=== PATIENT | male | born 1995 | race Caucasian/White ===

== ENCOUNTER 2025-04-24 21:01 | Emergency (ER) | payer MEDICAID, SELFPAY ==
[2025-04-24 21:04] VITALS: BP 130/85; PULSE 107; PULSE 108; RESP 18; RESP 20; TEMP 36.9; O2SAT 100
--- NOTE | 2025-04-24 21:13 | PD.EDPSYCH ---
ED Psych RME/HPI General Chief Complaint: Psychiatric Symptoms Stated Complaint: HALLUCINATING Time Seen by Provider: 04/24/25 21:20 Arrival date/time: 04/24/25 21:01 RME / HPI RME / HPI Narrative: See MDM for Dr. Bowser's HPI documentation. Review of Systems Review of Systems Systems Reviewed: All systems reviewed, normal except as documented Past Medical History Past Medical History CARDIAC: Negative Congestive Heart Failure RESPIRATORY: Negative Chronic Obstructive Pulmonary Disease (COPD) GENITOURINARY: Negative Renal Disease ENDOCRINE: Negative Diabetes Mellitus Type 1 or Diabetes Mellitus Type 2 Surgical History SURGICAL: Positive Abdominal Surgery and of Back Surgery Social History SMOKING STATUS: Former smoker ED Exam Narrative Physical exam: See MDM for Dr. Bowser's physical exam documentation. Course Quality Measures none Orders Category Date Time Status Straight [In and Out Catheter] X1 Care 04/24/25 21:20 Completed Acetaminophen Stat Lab 04/24/25 22:14 Completed Alcohol, Blood Medical Stat Lab 04/24/25 22:14 Completed Bilirubin,Direct Stat Lab 04/24/25 22:14 Completed CBC Stat Lab 04/24/25 22:14 Completed CK [Creatine Kinase] Stat Lab 04/24/25 22:14 Completed CMP [Comprehensive Metabolic Panel] Stat Lab 04/24/25 22:14 Completed Drug Screen,Urine Stat Lab 04/24/25 21:30 Completed Magnesium Stat Lab 04/24/25 22:14 Completed Salicylate Stat Lab 04/24/25 22:14 Completed TSH [Thyroid Stimulating Hormone] Stat Lab 04/24/25 22:14 Completed UA, C/S IF [Urinalysis, C/S if Indicated] Stat Lab 04/24/25 21:30 Completed Referral Nurse Rn Bsn NOW 04/24/25 23:24 Active Vital Signs Vital signs: Vital Signs Temperature 98.4 F 04/24/25 21:04 Pulse Rate 107 H 04/24/25 21:04 Respiratory Rate 20 04/24/25 21:04 Blood Pressure 130/85 H 04/24/25 21:04 Pulse Oximetry (%) 100 04/24/25 21:04 Oxygen Delivery Method Room Air 04/24/25 21:04 Psych MDM Narrative [facility] Narrative:: This section includes all my notes and documentations, including HPI, PE, and ED course. Adalid Bowser MD HPI: 29-year-old male with paraplegia here for psychiatric evaluation. Based on patient's answers, very difficult deciphering accurate history. He talked about [place] and [place]. He was stopped by police. EMS called for transportation here. He reports no psychiatric diagnoses in the past. But, he talked about hearing voices in childhood. When asked about suicidal thoughts, he talked about wanting other people to hurt him when using his phone. Sounds like he has no thoughts of hurting other people. Equivocal auditory and visual hallucinations. ROS: All negative except as documented in HPI. Physical Exam: General: Alert and oriented. Flat affect noted. Eyes: Conjunctivae and lids clear. ENT: No nasal congestion. Neck: Supple. Heart: RRR. Lungs: No respiratory distress. Good air movement. No rhonchi, wheezing, rales. Abdomen: Soft and nontender. Skin: Warm and dry. Neuro: Alert and oriented X 3. Cranial nerves II through grossly normal. No peripheral motor deficits. I reviewed EMS notes. I reviewed all diagnostic test results. Blood tests and urine tests unremarkable. At this point, diagnoses include: Possible psychosis Entered order for evaluation by our ED child adolescent care. Patient is medically cleared for psychiatric care. At 6 AM on 04/25/25, the care of the patient was transferred Dr. Strange. Adalid Bowser MD Patient data External records reviewed:: [facility] previous records (Per chart review, patient has no previous ED visits or admissions to this facility.) and EMS form Clinical information provided by:: patient Social determinants that could affect healthcare access:: mental health Patient has the following chronic illnesses:: none How is presenting disease/condition affected by chronic disease/condition?: no chronic disease Evaluation data The following diagnostics were reviewed and interpreted by me:: lab results Lab and/or radiology exams considered but not ordered:: none Interpretation Summary: Blood tests and urine tests unremarkable. Medications / Prescriptions Medications or Prescriptions considered but not ordered:: none Medication administrations:: None Consultations Consultation(s) initiated? (list below): No Diagnosis Psych Differential Diagnosis: acute psychosis, chronic schizophrenia, suicidal ideation, bipolar disorder, depression, drug-induced psychotic disorder and acute anxiety Most likely diagnosis given after review of the tests above:: Possible psychosis Admission Indicated Admission indicated?: not indicated Explain why admission is indicated or not indicated:: No psychiatric service here. Admission Request Was there a request for admission?: No Disposition Plan Disposition Plan: other (specify) (At 6 AM on 04/25/25, the care of the patient was transferred Dr. Strange.) Discharge Plan Prescriptions/Referrals Referrals: No Primary/Family,Physician [Primary Care Provider] - In 1 week Problem List Clinical Impression: Psychosis Patient/Caregiver Discharge Instructions Print Language: Kiswahili
[2025-04-24 21:45] LABS: Amorphous Crystals,Urine Present (Absent); Bacteria,Urine 2+; Bilirubin,Urine Negative (Negative); Blood,Urine Negative (Negative); Budding Yeast,Urine Present; Clarity,Urine Turbid (Clear/Hazy); Collection Type, Urine Clean Catch; Color,Urine Yellow (Lt Yel-Yel); Culture Indicated,Urine Contaminated; Glucose, Urine Negative (Negative); Ketones,Urine Negative (Negative); Leukocyte Esterase,Urine Positive (Negative); Nitrite,Urine Positive (Negative); PH,Urine 7.0 (5.0-7.0); Protein,Urine 1+ (Neg - Trace); RBC,Urine 9 /hpf (0-3); Specific Gravity,Urine 1.023 (1.001-1.035); Squamous Epithelial Cell,Urine 14 /hpf (0-5); Urobilinogen,Urine Negative mg/dL (0.0-1.0); WBC,Urine 64 /hpf (0-5)
[2025-04-24 21:51] LABS: Amphetamine/Methamp Scrn,U Negative (Negative); Barbiturate Screen,Urine Negative (Negative); Benzodiazepines Screen,Urine Negative (Negative); Benzoylecgonine Screen, Ur Negative (Negative); Fentanyl Screen,Urine Negative (Negative); Opiate Screen,Urine Negative (Negative); THC Screen,Urine Negative (Negative)
[2025-04-24 22:34] LABS: Basophils # (Auto) 0.0 Thou/mm3 (0.0-0.2); Basophils % (Auto) 0 % (0-2.5); Eosinophils # (Auto) 0.0 Thou/mm3 (0.0-0.5); Eosinophils % (Auto) 0 % (0-10); Hematocrit 41.3 % (41.0-53.0); Hemoglobin 14.3 g/dL (13.5-16.0); Immature Granulocytes Auto 0.05 Thou/mm3 (0.00-0.00); Lymphocytes # (Auto) 1.4 Thou/mm3 (1.0-4.8); Lymphocytes % (Auto) 9 % (10-50); Mean Corpuscular HGB Conc 34.6 g/dl (31.0-37.0); Mean Corpuscular Hemoglobin 30.6 pg (25.0-35.0); Mean Corpuscular Volume 88 fL (80-100); Monocytes # (Auto) 1.0 Thou/mm3 (0.0-0.8); Monocytes % (Auto) 7 % (0-12); Neutrophils # (Auto) 12.5 Thou/mm3 (1.8-7.7); Neutrophils % (Auto) 84 % (37-80); Nucleated Red Blood Cell # 0.00 Thou/mm3 (0.00-0.00); Nucleated Red Blood Cell % 0 /100 WBC (0); Platelet Count 338 Thou/mm3 (140-440); RDW Standard Deviation 42.5 fL (35.1-43.9); Red Blood Count 4.67 Miln/mm3 (4.50-5.90); White Blood Count 14.9 Thou/mm3 (3.8-10.6)
[2025-04-24 23:00] LABS: Acetaminophen < 2.0 mcg/mL (10.0-20.0); Alanine Aminotransferase 9 U/L (10-49); Albumin, Serum 4.6 gm/dL (3.5-5.0); Albumin/Globulin Ratio 1.5 (1.2-2.2); Alcohol, Blood Medical < 3.0 mg/dL (0-10.0); Alkaline Phosphatase 74 U/L (46-116); Anion Gap 10 (7-16); Aspartate Amino Transferase 14 U/L (0-34); BUN/Creatinine Ratio 17 Ratio (12-20); Bilirubin,Direct 0.1 mg/dL (0.0-0.3); Bilirubin,Total 0.5 mg/dL (0.3-1.2); Blood Urea Nitrogen 10 mg/dL (9-23); Calcium 9.5 mg/dL (8.3-10.6); Calcium (Corrected) 9.5 mg/dL (8.5-10.1); Carbon Dioxide 25.9 mMol/L (20.0-31.0); Chloride 106 mMol/L (98-107); Creatine Kinase 77 U/L (34-171); Creatinine (Component) 0.6 mg/dL (0.6-1.3); Globulin 3.0 gm/dL (2.3-3.5); Glucose 95 mg/dL (74-106); Magnesium 1.8 mg/dL (1.6-2.6); Osmolality,Calculated 282 (275-295); Potassium 4.0 mMol/L (3.4-5.1); Salicylate < 3.0 mg/dL; Sodium 142 mMol/L (136-145); Thyroid Stimulating Hormone 1.96 uIU/mL (0.55-4.78); Total Protein 7.6 gm/dL (5.7-8.2); eGFR > 60 See Note
[2025-04-25] VITALS (11 sets, daily range): BP systolic 93–126; BP diastolic 57–72; PULSE 95–126; RESP 12–20; TEMP 36.8–38.7; O2SAT 98–100; BMI 19.9
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
--- NOTE | 2025-04-25 08:45 | PC.SS ---
Jose Brunson is 29-Year-old male with paraplegia, was brought in via ambulance. Patient contacted [place] Police to obtain assistance reported needing help. Per Dr. Bowser, patient?s answers were very difficult deciphering accurate history. Patient was not placed on a hold. Cassidy [place] and Dorothy AGUILERA met face- to- face with patient at bedside. Patient has active visual hallucinations and confusion and Significant function decline. Patient is not medically cleared at this time due to active UTI. Per collateral from patient?s sister, Ally, she reports patient is typically active independent and capable of managing his needs, however has not been the same since developing UTI. Patient has no history of mental health, although he was diagnosed with oppositional defiant disorder diagnosis in childhood. Sister reports patient had a recent hospitalization due to severe UTI. Recent psychiatric instability includes two prior 5150 holds within the past three month, however was never placed on a hold and never seen a psychiatrist or therapist after discharging from the hospital. Patient?s sister, Ally reports during admission and being observed by a one on one sitter, the patient attempted suicide by hanging himself. ?volunteer services supervisor will continue to monitor patient, once medically cleared, SS will evaluate and determine if patient will be placed on a 5150 hold.
[2025-04-25 09:06] LABS: Lactate (Lactic Acid) 1.8 mMol/L (0.4-2.0)
[2025-04-25 09:41] LABS: Procalcitonin 0.56 ng/ml (0.0-0.49)
[2025-04-25] MEDS: ACETAMINOPHEN 325 MG TABLET 650 MG PO (11:06)
[2025-04-25] MEDS: SODIUM CHLORIDE 0.9% 1000 ML 1,000 ML 999 ML IV ×2 (11:10→21:03)
[2025-04-25] MEDS: cefTRIAXone/D5w 1gm IV premix 1 GM/50 ML BAG IV ×2 (11:11→21:03)
--- NOTE | 2025-04-25 15:32 | PC.CC ---
Patient is a 29 year old paraplegic male presenting with auditory hallucinations, paranoia, and confusion and disorganized behaviors. Patient is medically clear but continue to show significant psychiatric impairment. Per sister, this is not patient?s baseline, and she reports a continued decline in his physical and mental health. Patient is disheveled, unable to care for hygiene and unable to articular or follow a plan for safety, or ongoing medical /psychiatric care. Due to impairment judgment, paranoia, function decline and inability to meet basic needs, patient meets criteria for Grave Disability.
--- NOTE | 2025-04-25 17:00 | PC.SS ---
SS follow up note; SS sent out packet to all LPS facilities.
--- NOTE | 2025-04-25 18:13 | PD.EDADDENDU ---
Emergency Room Addendum Addendum Narrative: I took over the care from previous shift physician (Dr. Strange) at _6PM_ on _04/25/25_. See previous notes for complete H & P and ED course. I reviewed all diagnostic test results. Diagnoses include: Gravely disabled (5150 hold) UTI Inpatient psychiatric unit placement pending. At 6 AM on 04/26/2012, the care of the patient was transferred to Dr. Patterson. Adalid Bowser MD
[2025-04-25] MEDS: ACETAMINOPHEN 500 MG TABLET 1000 MG PO (20:54)
[2025-04-25] MEDS: KETOROLAC INJ 30 MG/ML VIAL IVP (21:05)
[2025-04-26] VITALS (11 sets, daily range): BP systolic 93–123; BP diastolic 60–71; PULSE 70–95; RESP 16–19; TEMP 36.5–37; O2SAT 95–100
--- NOTE | 2025-04-26 07:35 | PC.NURSE ---
Pt. here from home to room 16, pt.'s Mother and ERP CONSULTANT are bedside, Mother states pt. had sepsis back in August and Mother states with the sepsis pt. had delirium. Mother states pt. lives with her only because he is trying to buy a house. 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 Mother states pt. still rides motorcycles and snowboards when he wants to. Mother states if he gets any infection he talks and it doesn't make sense. Pt. has a wound on the right buttocks and inside left foot, Mother states she has been treating his wounds, Mother states it is hard because pt. only wants to lay on his right side. Pt. asks for warm blankets, given, warm blanket given to Mother as well. Mother states she brought pt.'s caths from home because he doesn't like the ones we have here.
--- NOTE | 2025-04-26 08:40 | PD.EDADDENDU ---
Emergency Room Addendum Addendum Narrative: 0600: Care assumed from Dr. Bowser, the previous shift emergency physician. Past medical, surgical, social and family history reviewed. Vitals and home medications reviewed. I will assume the care of the patient at this time, pending LPS facility placement. Please refer to the emergency department record for history and examination from initial visit.?The following addendum documentation note is intended to reflect any pending information, findings, or radiology results not included in the patient?s initial chart. During my watch and through ED course, the patient has remained vitally stable. Remains afebrile. 1800p: Care signed out to Dr. Bowser, pending LPS facility placement.
--- NOTE | 2025-04-26 09:55 | PC.NURSE ---
Estrella from [facility] called for report, report given and answered all questions, Estrella states she will call back after she presents the case to her Doctor.
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
--- NOTE | 2025-04-26 11:58 | PC.NURSE ---
Houston from [facility] called for report on pt., Houston states they will not accept pt. because he self caths and they do not take any catheter patients at their facility.
--- NOTE | 2025-04-26 12:05 | PC.NURSE ---
Shower chair obtained from [facility] for pt. to use.
--- NOTE | 2025-04-26 12:22 | PC.NURSE ---
Pt. back to room 16, from shower, pt. states he feels better after taking a shower. MILITARY ADMINISTRATIVE TECHNICIAN with pt.
--- NOTE | 2025-04-26 14:23 | PC.NURSE ---
Emilio with [facility] called and wanted report, Emilio states they can not accept pt. because pt. self caths himself.
--- NOTE | 2025-04-26 14:28 | PC.NURSE ---
Belinda with [facility] called and wanted report, Belinda states they can not accept pt. because pt. self caths himself.
--- NOTE | 2025-04-26 14:30 | PC.CC ---
11:10 AM: COMMUNICATION EQUIPMENT MECHANIC met with patient and patient mother at beside. Patient appeared disheveled and was eating eating oatmeal and rice during the interaction.Patient's mother provided additional collateral information, stating that he patient is not as his baseline and that his behaviors have progressively worsened. Patient mother reported that, while at home patient had not been eating, sleeping or attending to his activities of daily living (ADL's). Patient's mother also noted a family history of depress on her side and a history of substance use leading to psychosis on the biological father's side. 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 According to patient mother prior medical providers have informed her that delusional episodes can last from weeks to years, particularly if the patient is not taking medication consistently. Patient mother expressed concerns that patient refuses daily medication further contributing to her worry about patient returning home. COMMUNICATION EQUIPMENT MECHANIC informed the patient's mother that placement options continue to be explored and that team will collaborate with her to identify a safe plan for the patient's return home. COMMUNICATION EQUIPMENT MECHANIC will continue monitoring the situation and will proceed with sending placement packets.
[2025-04-26] MEDS: cefTRIAXone/D5w 1gm IV premix 1 GM/50 ML BAG IV (19:17)
[2025-04-26 20:01] LABS: Collection Type, Urine Clean Catch
[2025-04-26 20:05] LABS: Bilirubin,Urine Negative (Negative); Blood,Urine Negative (Negative); Clarity,Urine Clear (Clear/Hazy); Color,Urine Yellow (Lt Yel-Yel); Glucose, Urine Negative (Negative); Ketones,Urine Negative (Negative); Leukocyte Esterase,Urine Positive (Negative); Nitrite,Urine Negative (Negative); PH,Urine 6.0 (5.0-7.0); Protein,Urine Trace (Neg - Trace); RBC,Urine 4 /hpf (0-3); Specific Gravity,Urine 1.032 (1.001-1.035); Squamous Epithelial Cell,Urine 2 /hpf (0-5); Urobilinogen,Urine Negative mg/dL (0.0-1.0); WBC,Urine 38 /hpf (0-5)
[2025-04-26 20:10] LABS: Culture Indicated,Urine Yes
[2025-04-27] VITALS (7 sets, daily range): BP systolic 90–116; BP diastolic 58–69; PULSE 69–89; RESP 14–18; TEMP 36.4–36.9; O2SAT 96–100
--- NOTE | 2025-04-27 00:13 | XR_ITS ---
EXAMINATION: AP chest single view TECHNIQUE: AP portable upright chest single view Date and time: April 27, 2025, 12:42 a.m. INDICATIONS: Chest pain fever today FINDINGS: Normal heart size No lobar pneumonia or pulmonary edema Thoracic levoscoliosis with orthopedic stabilization rods Prominent osteopenia IMPRESSION: No pneumonia or pulmonary edema
[2025-04-27] MEDS: RINGERS LACTATED 1000 ML 1,000 ML IV (00:28)
--- NOTE | 2025-04-27 00:55 | XR_ITS ---
Examination: CT chest with intravenous contrast CT abdomen with intravenous contrast CT pelvis with intravenous contrast 2-D coronal and sagittal reconstructions Time of exam: April 27, 2025, 1315 hours INDICATIONS: Fever shortness of breath chest pain abdominal pain, nonhealing sacral wounds with redness noticed beginning 2 days ago CTDI: vol (mGy) : 5.66 DLP: (mGycm): 461 Technique: Multiple axial images of the chest, abdomen and pelvis with intravenous contrast, 3.0 mm slice thickness. Images obtained post intravenous injection Isovue 370 60 cc. 2-D sagittal and coronal reconstructions. Low dose protocols were performed. One or more of the following dose reduction techniques were used; automated exposure control, adjustment of the mA and/or KV according to patient size, use of iterative reconstruction technique. Findings: No thoracic aortic aneurysm dilatation No pulmonary artery emboli on this done CTA study No mediastinal lymphadenopathy No pneumonia or pulmonary edema No visualized liver or splenic lesion Contracted gallbladder, cholelithiasis No pancreatic mass Bilateral renal calculi, the largest left kidney 19 mm No hydronephrosis or ureteral calculi IVC filter No bowel obstruction Large amounts of stool in the rectum with thickening of the rectal wall No prostatomegaly Urinary bladder wall shows thickening IVC filter Prominent thoracolumbar dextroscoliosis Partial congenital left hip dysplasia Extensive thoracic stabilization procedure with transpedicular fixation screws Cellulitis pattern in the soft tissue posterior to the sacrum and coccyx without abscess and no ashlyn cortical bone destruction Cellulitis in the buttock region bilaterally,, muscle in the right buttock region is thickened IMPRESSION: Cholelithiasis, contracted gallbladder, recommend about a biliary sonography follow-up Bilateral renal calculi, no hydronephrosis or ureteral calculi Large amounts of stool in the rectum with rectal wall thickening, or proctitis pattern Urinary bladder wall thickening, cystitis pattern Cellulitis pattern in the soft tissue posterior to the sacrum and coccyx without abscess or ashlyn cortical bone destruction Cellulitis in the buttock region bilaterally,, muscle in the buttock region on the right is thickened although no obvious abscess, recommend ultrasound soft tissue right buttock follow-up
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
[2025-04-27 01:56] LABS: Lactate (Lactic Acid) 1.2 mMol/L (0.4-2.0)
[2025-04-27 02:02] LABS: Sed Rate (ESR) 4 mm/hr (0-15)
[2025-04-27 02:04] LABS: Basophils # (Auto) 0.0 Thou/mm3 (0.0-0.2); Eosinophils # (Auto) 0.1 Thou/mm3 (0.0-0.5); Eosinophils % (Auto) 2 % (0-10); Lymphocytes % (Auto) 34 % (10-50); Monocytes # (Auto) 0.7 Thou/mm3 (0.0-0.8); Nucleated Red Blood Cell # 0.00 Thou/mm3 (0.00-0.00); Nucleated Red Blood Cell % 0 /100 WBC (0)
[2025-04-27 02:06] LABS: Basophils % (Auto) 1 % (0-2.5); Hematocrit 37.2 % (41.0-53.0); Hemoglobin 12.3 g/dL (13.5-16.0); Immature Granulocytes Auto 0.03 Thou/mm3 (0.00-0.00); Lymphocytes # (Auto) 1.9 Thou/mm3 (1.0-4.8); Mean Corpuscular HGB Conc 33.1 g/dl (31.0-37.0); Mean Corpuscular Hemoglobin 29.6 pg (25.0-35.0); Mean Corpuscular Volume 90 fL (80-100); Monocytes % (Auto) 12 % (0-12); Neutrophils # (Auto) 2.8 Thou/mm3 (1.8-7.7); Neutrophils % (Auto) 50 % (37-80); Platelet Count 199 Thou/mm3 (140-440); RDW Standard Deviation 42.3 fL (35.1-43.9); Red Blood Count 4.15 Miln/mm3 (4.50-5.90); White Blood Count 5.6 Thou/mm3 (3.8-10.6)
--- NOTE | 2025-04-27 02:56 | PRELIM_ITS ---
CT scan of the chest, abdomen and pelvis with intravenous contrast (axial sections with sagittal and coronal reformats) April 27, 2025 0115 hours Clinical History: Fever, shortness of breath,. Sacral wounds with erythema/calor Comparison: None available at the time of this report. Findings: The lungs are clear. There is no pleural effusion or pneumothorax. The aorta is unremarkable without evidence of dissection or aneurysm. No evidence of mediastinal mass or lymphadenopathy. There is no pericardial effusion. The liver, spleen, pancreas, and adrenals are unremarkable. The gallbladder is contracted. Gallbladder wall thickening and gallstones without CT evidence of acute cholecystitis. Left renal calcification. Nonobstructing right kidney stones. No hydronephrosis. IVC filter noted in place. Impacted stool seen in the rectum associated with fecal loading. No evidence of bowel obstruction. No evidence of appendicitis. The urinary bladder is nondistended, limited evaluation, questionable thickening of the urinary bladder wall. Trace of air within the urinary bladder There is no free fluid or air. Degenerative changes of the imaged portions of the spine. No acute fractures. Right convex thoracolumbar scoliosis. Spinal hardware noted. Subcutaneous fat edema at the level of the sacrum. No collections. Right gluteal skin thickening. Impression: 1. Probable cystitis. Please, correlate clinically. 2. Subcutaneous fat edema at the level of the sacrum. 3. No collections. 4. Impacted stool seen in the rectum associated with fecal loading. Consider disimpaction. 5. Nonobstructive right nephrolithiasis. 6. Gallbladder wall thickening and gallstones without CT evidence of acute cholecystitis. If acute cholecystitis is clinically suspected consider correlation with right upper quadrant ultrasound. 7. Right gluteal skin thickening. Correlate with direct visualization. Report Electronically Signed By: Lamont Ruiz 04/27/2025 2:54:53 AM [EST]
[2025-04-27 03:12] LABS: Alanine Aminotransferase 8 U/L (10-49); Albumin, Serum 3.8 gm/dL (3.5-5.0); Albumin/Globulin Ratio 1.5 (1.2-2.2); Alkaline Phosphatase 60 U/L (46-116); Anion Gap 11 (7-16); Aspartate Amino Transferase 24 U/L (0-34); BUN/Creatinine Ratio 10 Ratio (12-20); Bilirubin,Total 0.2 mg/dL (0.3-1.2); Blood Urea Nitrogen 7 mg/dL (9-23); C-Reactive Protein 4.4 mg/dL (0.0-0.9); Calcium 8.6 mg/dL (8.3-10.6); Calcium (Corrected) 8.8 mg/dL (8.5-10.1); Carbon Dioxide 22.4 mMol/L (20.0-31.0); Chloride 106 mMol/L (98-107); Creatinine (Component) 0.7 mg/dL (0.6-1.3); Estimated Creatinine Clearance 145.5 mL/min (>60); Globulin 2.6 gm/dL (2.3-3.5); Glucose 104 mg/dL (74-106); Osmolality,Calculated 275 (275-295); Potassium 4.4 mMol/L (3.4-5.1); Sodium 139 mMol/L (136-145); Total Protein 6.4 gm/dL (5.7-8.2); eGFR > 60 See Note
--- NOTE | 2025-04-27 03:15 | XR_ITS ---
Examination: Abdomen sonogram, Limited Date and time of exam: April 27, 2025, 0421 hours INDICATIONS: Abdominal pain today Technique: Real-time stern scale transabdominal sonographic images of the upper abdomen obtained. Findings: Cholelithiasis The technologist measures the gallbladder wall 0.2 cm there appears to be fluid within and adjacent to the gallbladder wall Common bile duct 0.2 cm Pancreatic head 1.7 cm Liver 15.8 cm Normal hepatopetal portal venous flow Patent IVC IMPRESSION: Cholelithiasis Suspicious for fluid in the gallbladder wall, recommend HIDA scan or MRCP follow-up
[2025-04-27 03:32] LABS: Procalcitonin 0.20 ng/ml (0.0-0.49)
--- NOTE | 2025-04-27 05:35 | PRELIM_ITS ---
Gallbladder ultrasound. April 27, 2025 0421 hours Clinical history: RUQ tenderness. Comparison: Correlated with the prior CT study dated April 27, 2025 Findings: The visualized liver is normal in echogenicity without mass or ductal dilatation. Gallbladder is contracted. A 6.6 mm calculus is noted within the gallbladder, without evidence of gallbladder wall thickening or pericholecystic fluid. The common duct is normal in caliber at 2 mm. No free fluid is demons trated on the submitted images. Impression: Cholelithiasis without evidence of acute cholecystitis. Report Electronically Signed By: Mp March 04/27/2025 5:34:32 AM [EST]
--- NOTE | 2025-04-27 07:11 | PC.CC ---
Addendum entered by Hedy oLpez 04/27/25 11:29: 1127 Nessa reports he was denied due to medical reasons and they cannot accommodate. Addendum entered by Hedy Lopez 04/27/25 10:34: 1030 Mine with [facility] reports they cannot accommodate the patient do to medical. 1025 Kim with [facility] reports they have no open beds. 1022 Rosalba with [facility] reports they have a few open beds and will return our call. Original Note: 0711 Hedy AGUILERA made telephone contact with [facility] and sent referral packet.
[2025-04-27] MEDS: cefTRIAXone/D5w 1gm IV premix 1 G/50 ML BAG IV (09:39)
--- NOTE | 2025-04-27 10:30 | PD.EDADDENDU ---
Emergency Room Addendum Addendum Narrative: 0600: Care assumed from Dr. Bowser, the previous shift emergency physician. Past medical, surgical, social and family history reviewed. Vitals and home medications reviewed. I will assume the care of the patient at this time, pending LPS facility placement. Please refer to the emergency department record for history and examination from initial visit.?The following addendum documentation note is intended to reflect any pending information, findings, or radiology results not included in the patient?s initial chart. Patient had been receiving Rocephin IV BID for 3 days. Antibiotics will be switched to Bactrim PO BID. Will also add Risperidone PO BID. 1800: Patient has remained stable through my watch. Care signed out to Dr. Bowser, pending LPS facility placement.
--- NOTE | 2025-04-27 11:01 | PC.CC ---
WILLY De La Cruz, met with patient who is currently on a 5150 hold. Patient continues to experience auditory hallucinations, paranoid delusions, and presents as hyperverbal and disorganize. Patient displays impaired insight and judgment, with limited ability to reality test. Symptoms continues to interfere with patient's ability to meet basic needs and maintain safety.
[2025-04-27 12:15] LABS: Chlamydia trachomatis PCR Negative (Not Detect); Neisseria Gonorrhoeae DNA PCR Negative (Not Detect); Trichomonas Negative (Negative)
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
[2025-04-27] MEDS: TRIMETHOPRIM/SULFA 160/800 DS TABLET 1 TAB PO (22:14)
--- NOTE | 2025-04-28 | XR_ITS ---
MRI abdomen, without contrast. MRCP Date and time of exam: April 28, 2025, 0703 hours INDICATIONS: Abdominal pain beginning yesterday, suspicious for fluid in the gallbladder wall on ultrasound examination yesterday Technique: Multiple axial and coronal images of the abdomen have been obtained with the Siemens 1.5T MRI scanner. Images obtained included T1 weighted transverse images, T2-weighted transverse images, T2-weighted transverse images fat-suppressed, T2 weighted haste fat suppressed transverse images, T1 weighted images, in and out of phase images, T2-weighted coronal images, breath hold, T2 weighted haze coronal images as well as T2 weighted coronal thick slab images, MRCP. Findings: The entire study is degraded by patient motion Intrahepatic biliary tract dilatation Gallstones Gallbladder wall does not appear thickened Common bile duct 6 mm, suspicious for 3 mm stone in the distal common bile duct coronal image 6 Spleen is not enlarged No ascites Prominent thoracolumbar dextroscoliosis No hydronephrosis IMPRESSION: The entire study is limited secondary to breathing motion Cholelithiasis, negative for cholecystitis Suspicious for 3 mm stone in the distal common bile duct, consider ERCP follow-up
[2025-04-28 06:20] VITALS: BP 103/62; PULSE 73; RESP 16; TEMP 36.8; O2SAT 98
--- NOTE | 2025-04-28 07:48 | PD.EDADDENDU ---
Emergency Room Addendum Addendum Narrative: Care assumed of patient at change of shift. 29 yo male patient with h/o paraplegia and psychosis pending placement to psychiatric facility. MRCP ordered by overnight physician due to recommendation on ultrasound read. Ultrasound was ordered due to recommendation on CT abd/pel read. MRCP suggests ERCP. Labs are within normal limits. There is no transaminitis. There is no hyperbilirubinemia. There is no leukocytosis. Patient does not have clinical indication for additional studies. Blood culture one of two aerobic bottles positive for gram positive cocci. Interpreted by me as contaminant. Medically cleared. Reevaluated by career resource specialist. 5150 hold due to . Per career resource specialist, safety plan established with patient and his mother. Mental health referrals provided.
[2025-04-28] MEDS: TRIMETHOPRIM/SULFA 160/800 DS TABLET 1 TAB PO (07:49)
--- NOTE | 2025-04-28 09:58 | PC.CC ---
Addendum entered by Grisel Crews 04/28/25 13:30: Patient is a 29 year-old year old male who presents to the hospital for suicidal hallucinations. Pt was brought in by EMS voluntary. Pt was medically cleared and evaluated by ED Director Of [facility] and placed on 5150 hold. 5150 hold will be expiring 04/28/25 at 1441. Owner Operator made [id number] contact with patient to complete re-evaluation assessment. Owner Operator introduced self, role, and reason for assessment. Owner Operator disclosed limits of confidentiality as well. Patient appeared alert and oriented to self, place, and situation. Patient made appropriate eye contact with this automatic typewriter inspector and remained euthymic throughout assessment. Patient?s attitude appeared even and cooperative. Patient confirmed information on demographics and reports to living with mother and family. Patient reports experiencing audio and visual hallucinations, but no active SI/HI, no recent self-harming. Pt reports will like to begin MH services. Bedside nurse Kendra and attending Dr. Romo report Pt has been able to eat and has been medication compliant. Nurse and Dr in agreement with safety planning and allowing Pt to go home. Owner Operator spoke with Pt mother. Mother will like to safety plan and reports will be able to keep Pt safe. Mother reports will like referral to MH and will be able to follow up for wound care and antibiotics. Owner Operator provided Pt and mother with contact information for [facility] [phone]. [facility] not continue to meet criteria for 5150-hold and safety plan will be established with patient and mother. Per mother, there are firearms in the home but agrees to secure firearms. Mother reports that she will keep all sharps and medications in a secure location. Patient will not be left alone at home and extra supervision will be provided for the next 72 hours. Mother will ensure patient attends his follow-up mental health services with writer Wolf completed referral. Owner Operator provided update of safety plan to medical team and discharge plan with mother.. Addendum entered by Grisel Crews 04/28/25 10:05: Owner Operator spoke with Viry from [facility] for possible placement-updated packet was faxed out and awaiting decision. Original Note: EC Director Of [facility] updated 5150 placement packet and packet was sent out via XM fax to all accepting adult [facility] facilities.
[2025-04-28 10:11] VITALS: BP 108/70; PULSE 78; PULSE 80; RESP 17; TEMP 36.8; O2SAT 100
[2025-04-28 14:00] VITALS: BP 105/70; PULSE 80; RESP 18; TEMP 37; O2SAT 100
== END 2025-04-28 14:06 | disposition home or self-care (01) ==
PROVIDERS: Emergency Medicine; Emergency Provider Emergency Medicine
DX: Z00.8 Encounter for other general examination (principal); F29 Unspecified psychosis not due to a substance or known physiological condition; G82.20 Paraplegia, unspecified; L03.317 Cellulitis of buttock; K59.00 Constipation, unspecified; K80.20 Calculus of gallbladder without cholecystitis without obstruction; T14.8XXS Other injury of unspecified body region, sequela; L89.219 Pressure ulcer of right hip, unspecified stage; N39.0 Urinary tract infection, site not specified; V86.56XS Driver of dirt bike or motor/cross bike injured in nontraffic accident, sequela; R07.9 Chest pain, unspecified
CPT/HCPCS: 36415; 51701; 71045; 71260; 74177; 74181; 76705; 80053; 80307; 80320; 80329; 81001; 82248; 82550; 83605; 83735; 84145; 84443; 85025; 85652; 86140; 87040; 87077; 87086; 87186; 87491; 87502; 87591; 87635; 87661; 96127; 96365; 96366; 96375; 99285; A4649; J0696; J1885; J7030; J7120; Q9967; A9270; G0480